=== PATIENT | male | born 1955 | race Caucasian/White ===

== ENCOUNTER 2018-07-26 08:30 | Emergency (ER) | payer MEDICARE, OTHER ==
--- NOTE | 2018-07-26 08:42 | ED Physician Documentation ---
PD HPI CHEST PAIN - Stated complaint Stated Complaint: CP - History obtained from History obtained from: Patient, Family - History of Present Illness Timing - onset: Enter time (129), Today Timing - onset during: Sleep Timing - duration: Hours Timing - details: Abrupt onset, Still present Pain level max: 10 Pain level now: 2 Quality: Pressure, Aching Location: Substernal Radiation: No: Jaw, Neck, Back, Abdominal, Left upper extremity, Right upper extremity Improved by: Antacids Worsened by: Inspiration Associated symptoms: No: Shortness of air, Diaphoresis, Nausea, Vomiting, Feeling faint / dizzy, General Weakness, Palpitations, Cough Similar symptoms before: Has not had sx before Recently seen: Not recently seen - Additional information Additional information: 63-year-old male who is recently moved to the [place] with his as developed acute substernal chest pain last night about 1:30 in the morning. This woke him from sleep and was severe. He did take some antacid which he thinks may have helped a bit as he was able to get back to sleep. When he woke this morning he still had this pain in his chest and his is insisted he come to the emergency department. The patient himself states he feels this is likely due to his hiatal hernia. He does not take acid reducing medicines on a regular basis. Review of Systems Constitutional: denies: Fever Eyes: denies: Decreased vision Ears: denies: Ear pain Nose: reports: Rhinorrhea / runny nose, Congestion, Sinus pressure / pain Throat: denies: Sore throat Cardiac: denies: Chest pain / pressure, Palpitations Respiratory: reports: Cough. denies: Dyspnea GI: denies: Abdominal Pain, Nausea, Vomiting : denies: Dysuria, Frequency Skin: denies: Rash Musculoskeletal: denies: Neck pain, Back pain, Extremity pain Neurologic: denies: Generalized weakness, Focal weakness, Numbness PD PAST MEDICAL HISTORY - Present Medications Home Medications: Ambulatory Orders Medication Instructions Recorded Confirmed Aspirin Chewable [[facility] 07/26/18 Aspirin] Losartan [Cozaar] 50 mg PO DAILY 07/26/18 07/26/18 Simvastatin 10 mg PO 07/26/18 07/26/18 Sucralfate [Carafate] 1 gm PO ACHS #30 tablet 07/26/18 - Allergies Allergies/Adverse Reactions: Allergies Allergy/AdvReac Type Severity Reaction Status Date / Time No Known Drug Allergies Allergy Verified 07/26/18 08:47 PD ED PE NORMAL - Vitals Vital signs reviewed: Yes (hypertensive) - General General: Alert and oriented X 3, No acute distress, Well developed/nourished - HEENT HEENT: Atraumatic, PERRL, EOMI - Neck Neck: Supple, no meningeal sign - Cardiac Cardiac: RRR, No murmur - Respiratory Respiratory: No respiratory distress, Clear bilaterally - Abdomen Abdomen: Soft, Non tender - Back Back: No CVA TTP, No spinal TTP - Derm Derm: Normal color, Warm and dry, No rash - Extremities Extremities: No deformity, No edema - Neuro Neuro: Alert and oriented X 3, biology professor 2-12 intact, No motor deficit, No sensory deficit, Normal speech Eye Opening: Spontaneous Motor: Obeys Commands Verbal: Oriented GCS Score: 15 - Psych Psych: Normal mood, Normal affect Results - Vitals Vitals: Vital Signs - 24 hr 07/26/18 08:44 Temperature 36.5 C Heart Rate 84 Respiratory 15 Rate Blood Pressure 139/96 H O2 Saturation 96 Oxygen O2 Source Room air - EKG (time done) 0839 Rate: Rate (enter#) (76) Rhythm: NSR Ischemia: Q waves Compare to prior EKG: Old EKG unavailable Computer interpretation: Agree with computer - Labs Labs: Laboratory Tests 07/26/18 07/26/18 07/26/18 08:59 08:59 08:59 WBC 12.8 H RBC 4.58 L Hgb 15.4 Hct 44.8 MCV 97.9 H MCH 33.6 H MCHC 34.3 RDW 13.5 Plt Count 261 MPV 8.4 Neut # (Auto) 9.2 H Lymph # (Auto) 2.0 [place] # (Auto) 1.1 H Eos # (Auto) 0.4 Baso # (Auto) 0.1 Absolute Nucleated RBC 0.00 Nucleated RBC % 0.0 Sodium 139 Potassium 4.4 Chloride 106 Carbon Dioxide 26 Anion Gap 7.0 BUN 15 Creatinine 1.0 Estimated GFR (MDRD) 75 L Glucose 111 H Calcium 9.5 Total Bilirubin 0.8 AST 28 ALT 23 Alkaline Phosphatase 68 Troponin I < 0.04 Total Protein 6.5 L Albumin 3.9 Globulin 2.6 Albumin/Globulin Ratio 1.5 Lipase 36 - Rads (name of study) 2 view chest Radiology: Prelim report reviewed (Impression: No radiographically apparent acute abnormality in the chest.), EMP read indepedently, See rad report PD MEDICAL DECISION MAKING - ED course Complexity details: reviewed results, re-evaluated patient, considered differential, d/w patient, d/w family ED course: 63-year-old male with acute onset of substernal chest pain consistent with reflux has improvement with antacids at the onset of event and has improvement with viscous lidocaine and Mylanta here in the emergency department. His diagnostic studies are otherwise within normal limits. - Sepsis Event Vital Signs: Vital Signs - 24 hr 07/26/18 08:44 Temperature 36.5 C Heart Rate 84 Respiratory 15 Rate Blood Pressure 139/96 H O2 Saturation 96 Oxygen O2 Source Room air Departure - Departure Disposition: 01 Home, Self Care Clinical Impression: Reflux esophagitis Condition: Stable Instructions: ED GERD Follow-Up: Celeste Gabriel MD [Primary Care Provider] - Prescriptions: Sucralfate [Carafate] 1 gm PO ACHS #30 tablet Comments: Avoid alcohol ibuprofen and Aleve and take something to reduce the acid in your stomach on a regular basis for at least 10 days. I suggest Pepcid AC or omeprazole.
[2018-07-26] MEDS ORDERED: LIDOCAINE VISCOUS 2% 15 ML UDC MM STA (08:58)
[2018-07-26] MEDS ORDERED: MAG HYDROX/AL HYDROX/SIMETH 30 ML UDC PO STA (08:59)
[2018-07-26 09:08] LABS: BASOPHILS # (AUTO) 0.1 10^3/uL (0.0-0.1); BASOPHILS % (AUTO) 0.9 %; EOSINOPHILS # (AUTO) 0.4 10^3/uL (0.0-0.7); EOSINOPHILS % (AUTO) 3.3 %; HGB - HEMOGLOBIN 15.4 g/dL (14.0-18.0); LYMPHOCYTES % (AUTO) 15.8 %; MEAN CORPUSCULAR HEMOGLOBIN 33.6 pg (27.0-31.0); MEAN CORPUSCULAR HGB CONC 34.3 g/dL (32.0-36.0); MEAN CORPUSCULAR VOLUME 97.9 fL (80.0-94.0); MEAN PLATELET VOLUME 8.4 fL (7.4-11.4); MONOCYTES # (AUTO) 1.1 10^3/uL (0.0-1.0); MONOCYTES % (AUTO) 8.5 %; NEUTROPHILS # (AUTO) 9.2 10^3/uL (1.5-6.6); NEUTROPHILS % (AUTO) 71.5 %; PLT - PLATELET COUNT 261 10^3/uL (130-450); RED BLOOD COUNT 4.58 10^6/uL (4.70-6.10); RED CELL DISTRIBUTION WIDTH 13.5 % (12.0-15.0); WHITE BLOOD COUNT 12.8 x10^3/uL (4.8-10.8)
[2018-07-26 09:27] LABS: ALBUMIN 3.9 g/dL (3.2-5.5); ALBUMIN/GLOBULIN RATIO 1.5 (1.0-2.2); BILIRUBIN,TOTAL 0.8 mg/dL (0.2-1.0); CALCIUM 9.5 mg/dL (8.5-10.3); TOTAL PROTEIN 6.5 g/dL (6.7-8.2)
--- NOTE | 2018-07-26 09:28 | XRAY Report ---
Reason: chest pain Procedure Date: 07/26/2018 Accession Number: [id number] / [id number] Procedure: XR - Chest 2 View X-Ray CPT Code: 63344 FULL RESULT: EXAM: CHEST RADIOGRAPHY EXAM DATE: 07/26/2018 09:15 AM. CLINICAL HISTORY: Chest pain. COMPARISON: None. TECHNIQUE: 2 views. FINDINGS: Lungs/Pleura: No focal consolidation evident. No pleural effusion. No pneumothorax. Normal volumes. Mediastinum: Heart and mediastinal contours are unremarkable. Other: None. IMPRESSION: No radiographically apparent acute abnormality in the chest. RADIA
[2018-07-26 10:19] VITALS: BP 141/94
== END 2018-07-26 10:18 | disposition home or self-care (01) ==
LOC: ED 08:30
DX: K21.0 Gastro-esophageal reflux disease with esophagitis (principal); K44.9 Diaphragmatic hernia without obstruction or gangrene; Z79.82 Long term (current) use of aspirin; R94.31 Abnormal electrocardiogram [ECG] [EKG]
CPT/HCPCS: 36415; 71046; 80053; 83690; 84484; 85025; 93005; 99283; A9270

== ENCOUNTER 2019-02-22 12:05 | Day surgery (SDC) | payer MEDICARE, OTHER ==
[2019-02-22] MEDS ORDERED: MIDAZOLAM 2 MG/2 ML VIAL IVP ONE ×2 (12:06→13:56)
[2019-02-22] MEDS ORDERED: fentaNYL 100 MCG/2 ML VIAL IVP ONE ×2 (12:06→13:56)
[2019-02-22] MEDS ORDERED: LACTATED RINGERS 1,000 ML IV ONE (12:46)
[2019-02-22] MEDS ORDERED: LIDO GARGLE 30 ML BOTTLE ONE (14:00)
[2019-02-22] MEDS ORDERED: BENZOCAINE/TETRACAINE/BUTAMBEN 20 GM TOP ONE (14:01)
[2019-02-22 14:40] VITALS: BP 115/76
== END 2019-02-22 12:06 | disposition home or self-care (01) ==
LOC: SDS 12:05
PROVIDERS: ATTEND Surgery
PROC: 0DB78ZX Excision of Stomach, Pylorus, Via Natural or Artificial Opening Endoscopic, Diagnostic (ICD-10-PCS; principal; 2019-02-22 14:00)
DX: K29.60 Other gastritis without bleeding (principal); K21.9 Gastro-esophageal reflux disease without esophagitis; K44.9 Diaphragmatic hernia without obstruction or gangrene; Z86.010 Personal history of colon polyps; I10 Essential (primary) hypertension; E78.5 Hyperlipidemia, unspecified; F40.240 Claustrophobia; N40.0 Benign prostatic hyperplasia without lower urinary tract symptoms; F17.210 Nicotine dependence, cigarettes, uncomplicated; Z79.82 Long term (current) use of aspirin
CPT/HCPCS: 43239; 87081; A9270; J7120

== ENCOUNTER 2019-03-15 07:56 | Outpatient (CLI) | payer MEDICARE, OTHER ==
--- NOTE | 2019-03-15 14:47 | MRI Report ---
Reason: R SHOULDER PAIN Procedure Date: 03/15/2019 Accession Number: [id number] / [id number] Procedure: MRI - Shoulder RT W/O CPT Code: FULL RESULT: EXAM: RIGHT SHOULDER MRI WITHOUT CONTRAST EXAM DATE: 03/15/2019 08:11 AM. CLINICAL HISTORY: Right shoulder pain for 4 years. COMPARISON: None. TECHNIQUE: Multiplanar, multisequence T1-weighted and fluid-sensitive sequences of the shoulder without contrast. Other: None. FINDINGS: Acromioclavicular Region: The acromion is type II. Mild osteoarthritis acromioclavicular joint. The coracoacromial and coracoclavicular ligaments are intact. Small fluid or synovial hypertrophy subacromial/subdeltoid bursa. Glenohumeral Region: No subluxation. Small joint fluid. Moderate chondromalacia. The glenohumeral ligaments and joint capsule are unremarkable. Bone Marrow: Mild spurring medial humerus head. Focal geographic marrow edema greater tuberosity humerus head at the supraspinatus tendon insertion. Labrum: Superior labrum tear with anterior and posterior extension. Musculature/Rotator Cuff: Negative for rotator cuff tear. Distal supraspinatus calcific tendinosis with adjacent bursitis. Thickening and intermediate signal infraspinatus supraspinatus interval consistent with tendinosis. Rotator cuff muscles are negative for atrophy or edema. Biceps Tendon: The long head of the biceps tendon and biceps favio are intact. Other: The subcutaneous tissues are unremarkable. IMPRESSION: 1. Distal supraspinatus calcific tendinosis with associated greater tuberosity marrow edema and subacromial/subdeltoid bursitis. 2. Tendinosis supraspinatus infraspinatus interval. 3. Superior labrum tear SLAP lesion with anterior and posterior extension (type IIc). RADIA
== END 2019-03-15 07:57 | disposition home or self-care (01) ==
LOC: DI 07:56
PROVIDERS: ATTEND Internal Medicine
DX: M75.81 Other shoulder lesions, right shoulder (principal); M75.51 Bursitis of right shoulder; M19.011 Primary osteoarthritis, right shoulder; S43.431A Superior glenoid labrum lesion of right shoulder, initial encounter

== ENCOUNTER 2019-05-11 14:57 | Emergency (ER) | payer MEDICARE, OTHER ==
--- NOTE | 2019-05-11 15:25 | ED Physician Documentation ---
PD HPI FOCAL NEURO - Stated complaint Stated Complaint: STROKE LIKE SX - Chief complaint Chief Complaint: Neuro - History obtained from History obtained from: Patient, Family - History of Present Illness Timing - onset: Today (He suddenly had difficulty with memory this afternoon. He denies any specific complaints. He denies headache. He is walking okay. No weakness, numbness, or tingling. This is never happened before.) Review of Systems Ten Systems: 10 systems reviewed and negative Constitutional: denies: Fever, Chills Throat: denies: Dental pain / toothache, Sore throat Cardiac: denies: Chest pain / pressure, Palpitations Respiratory: denies: Dyspnea, Cough PD PAST MEDICAL HISTORY - Past Medical History Cardiovascular: Hypertension, High cholesterol Respiratory: None Endocrine/Autoimmune: None GI: GERD, Hiatal hernia : None HEENT: None Psych: None Musculoskeletal: None Derm: None - Past Surgical History General: Hiatal hernia repair, EGD - Present Medications Home Medications: Ambulatory Orders Medication Instructions Recorded Confirmed Aspirin Chewable [[facility] 1 tab PO DAILY 07/26/18 02/21/19 Aspirin] Losartan [Cozaar] 50 mg PO DAILY 07/26/18 02/21/19 Simvastatin 10 mg PO DAILY 07/26/18 02/21/19 Sucralfate [Carafate] 1 gm PO ACHS #30 tablet 07/26/18 02/21/19 - Allergies Allergies/Adverse Reactions: Allergies Allergy/AdvReac Type Severity Reaction Status Date / Time No Known Drug Allergies Allergy Verified 05/11/19 15:07 - Social History Does the pt smoke?: Yes Smoking Status: Current every day smoker Does the pt drink ETOH?: Yes - Immunizations Immunizations are current?: Yes PD ED PE NORMAL - Vitals Vital signs reviewed: Yes - General General: Alert and oriented X 3, No acute distress - HEENT HEENT: PERRL, EOMI, Other (Droopy right eyelid which the says is chronic) - Neck Neck: Supple, no meningeal sign, No bony TTP - Cardiac Cardiac: RRR, No murmur - Respiratory Respiratory: No respiratory distress, Clear bilaterally - Abdomen Abdomen: Normal bowel sounds, Soft, Non tender - Derm Derm: Normal color, Warm and dry - Extremities Extremities: No edema, No calf tenderness / cord - Neuro Neuro: Alert and oriented X 3, Normal speech, Other (NIH stroke scale of 0. He had a little trouble coming up with the specific date but got there. He knew hi s age and that he was turning 64 in June. He remembers that tomorrow is his 16th anniversary. He remembers what he had for breakfast, 2 eggs, potatoes, wheat toast, and coffee.) - Psych Psych: Normal mood, Normal affect Results - Vitals Vitals: Vital Signs - 24 hr 05/11/19 05/11/19 15:04 15:30 Temperature 35.9 C L Heart Rate 103 H 93 Respiratory 19 22 Rate Blood Pressure 146/86 H 145/104 H O2 Saturation 97 98 Oxygen O2 Source Room air - EKG (time done) 1526 Rate: Rate (enter#) (92) Rhythm: NSR [place]: Normal Intervals: Normal [place] QRS: Normal Ischemia: Normal ST segments Computer interpretation: Agree with computer - Labs Labs: Laboratory Tests 05/11/19 05/11/19 15:40 15:40 WBC 9.7 RBC 4.63 L Hgb 15.6 Hct 45.9 MCV 99.1 H MCH 33.7 H MCHC 34.0 RDW 12.8 Plt Count 260 MPV 9.9 Neut # (Auto) 5.6 Lymph # (Auto) 2.9 [place] # (Auto) 0.7 Eos # (Auto) 0.4 Baso # (Auto) 0.0 Absolute Nucleated RBC 0.00 Nucleated RBC % 0.0 Sodium 139 Potassium 4.0 Chloride 104 Carbon Dioxide 23 Anion Gap 12.0 BUN 14 Creatinine 1.0 Estimated GFR (MDRD) 75 L Glucose 137 H Calcium 9.3 Total Bilirubin 0.4 AST 17 ALT 14 Alkaline Phosphatase 63 Total Protein 6.8 Albumin 4.0 Globulin 2.8 Albumin/Globulin Ratio 1.4 Lipase 43 Ethyl Alcohol < 5.0 - Rads (name of study) CT Head Radiology: EMP read contemporaneously (age realted chgs, NAD) PD MEDICAL DECISION MAKING - ED course ED course: 63-year-old gentleman presents with an apparent mild and already improving case of transient global amnesia without focal neurologic deficits on examination here he is pretty much normal. He continued to improve per the throughout his ED stay. Departure - Departure Disposition: 01 Home, Self Care Clinical Impression: Transient global amnesia Condition: Good Record reviewed to determine appropriate education?: Yes Health Concerns: memory difficulty Plan of Treatment: conservative care, discuss statis with PCP Care Goals: rest Assessment: as above Comments: The diagnosis today is transient global amnesia. This should be gone within a day or so. Do not drive today. Follow-up with your primary care physician, discuss ongoing statin use as there is an association between statins and this diagnosis. Return if worse.
[2019-05-11 15:45] VITALS: BP 145/104
[2019-05-11 15:52] LABS: BASOPHILS % (AUTO) 0.4 %; EOSINOPHILS # (AUTO) 0.4 10^3/uL (0.0-0.7); EOSINOPHILS % (AUTO) 3.6 %; HGB - HEMOGLOBIN 15.6 g/dL (14.0-18.0); LYMPHOCYTES # (AUTO) 2.9 10^3/uL (1.5-3.5); LYMPHOCYTES % (AUTO) 30.3 %; MEAN CORPUSCULAR HEMOGLOBIN 33.7 pg (27.0-31.0); MEAN CORPUSCULAR VOLUME 99.1 fL (80.0-94.0); MEAN PLATELET VOLUME 9.9 fL (7.4-11.4); MONOCYTES # (AUTO) 0.7 10^3/uL (0.0-1.0); MONOCYTES % (AUTO) 7.6 %; NEUTROPHILS # (AUTO) 5.6 10^3/uL (1.5-6.6); NEUTROPHILS % (AUTO) 57.7 %; PLT - PLATELET COUNT 260 10^3/uL (130-450); RED BLOOD COUNT 4.63 10^6/uL (4.70-6.10); RED CELL DISTRIBUTION WIDTH 12.8 % (12.0-15.0); WHITE BLOOD COUNT 9.7 x10^3/uL (4.8-10.8)
[2019-05-11 15:58] LABS: ALBUMIN/GLOBULIN RATIO 1.4 (1.0-2.2); ALKALINE PHOSPHATASE 63 IU/L (42-121); ALT ALANINE AMINOTRANSFERASE 14 IU/L (10-60); AST ASPARTATE AMINOTRANSFERASE 17 IU/L (10-42); BILIRUBIN,TOTAL 0.4 mg/dL (0.2-1.0); BUN - BLOOD UREA NITROGEN 14 mg/dL (6-20); CALCIUM 9.3 mg/dL (8.5-10.3); CARBON DIOXIDE - CO2 23 mmol/L (21-32); CHLORIDE 104 mmol/L (101-111); GFR - MDRD 75 (>89); GLUCOSE 137 mg/dL (70-100); LIPASE 43 U/L (22-51); SODIUM 139 mmol/L (135-145); TOTAL PROTEIN 6.8 g/dL (6.7-8.2)
--- NOTE | 2019-05-11 16:20 | CT Report ---
Reason: transient global amnesia Procedure Date: 05/11/2019 Accession Number: [id number] / [id number] Procedure: CT - HEAD WO CPT Code: FULL RESULT: EXAM: CT HEAD EXAM DATE: 05/11/2019 03:52 PM. CLINICAL HISTORY: Transient global amnesia. COMPARISON: None. TECHNIQUE: Multiaxial CT images were obtained from the foramen magnum to the vertex. Reformats: Sagittal and coronal. IV contrast: None. In accordance with CT protocol optimization, one or more of the following dose reduction techniques were utilized for this exam: automated exposure control, adjustment of mA and/or KV based on patient size, or use of iterative reconstructive technique. FINDINGS: Parenchyma: No intraparenchymal hemorrhage. No evidence of mass, midline shift, or CT findings of acute infarction. Pena-white differentiation is distinct. Diffuse chronic microangiopathic white matter changes are evident. Empty sella noted which can be a normal variant. Extraaxial Spaces: Normal for age. No subdural or epidural collections identified. Ventricles: The ventricles and cortical sulci are enlarged, consistent with age-related tissue loss. Sinuses and orbits: Imaged paranasal sinuses, orbits, and mastoids show no significant abnormality. Bones: No evidence of fracture or calvarial defect. Other: None. IMPRESSION: Generalized age-related cortical atrophic changes without evidence of acute intracranial abnormality. RADIA
== END 2019-05-11 16:37 | disposition home or self-care (01) ==
LOC: ED 14:57
DX: G45.4 Transient global amnesia (principal); I10 Essential (primary) hypertension; E78.00 Pure hypercholesterolemia, unspecified; F17.200 Nicotine dependence, unspecified, uncomplicated; Z79.82 Long term (current) use of aspirin
CPT/HCPCS: 36415; 70450; 80053; 80320; 83690; 85025; 93005; 99282; 99283

== ENCOUNTER 2019-11-18 11:27 | Outpatient (CLI) | payer MEDICARE, OTHER ==
[2019-11-18] MEDS ORDERED: IOVERSOL 320 50 ML VIAL ONE (11:36)
[2019-11-18] MEDS ORDERED: IOVERSOL 320 100 ML VIAL IVP ONE ×2 (11:36→13:07)
[2019-11-18 11:59] LABS: CREATININE 1.1 mg/dL (0.6-1.2)
[2019-11-18] MEDS ORDERED: IOVERSOL 320 50 ML VIAL PO ONE (13:07)
--- NOTE | 2019-11-18 13:24 | CT Report ---
Reason: LLQ PAIN Procedure Date: 11/18/2019 Accession Number: [id number] / [id number] Procedure: CT - Abdomen/Pelvis W CPT Code: Final Report FULL RESULT: EXAM: CT ABDOMEN AND PELVIS EXAM DATE: 11/18/2019 12:49 PM. CLINICAL HISTORY: LLQ PAIN. COMPARISONS: None. TECHNIQUE: Routine helical CT imaging was performed through the abdomen and pelvis. IV contrast: OPTI 320 100ML. Enteric contrast: Yes. Reconstructions: Coronal and sagittal. In accordance with CT protocol optimization, one or more of the following dose reduction techniques were utilized for this exam: automated exposure control, adjustment of mA and/or KV based on patient size, or use of iterative reconstructive technique. FINDINGS: Lung Bases: Unremarkable. Liver: Normal. No masses. Gallbladder/Bile Ducts: Unremarkable. Spleen: Normal. Pancreas: Normal. Adrenal Glands: Normal. Kidneys: No renal or ureteral stones. No mass or hydronephrosis. Peritoneal Cavity/Bowel: Stomach and duodenum appears unremarkable. There is oral contrast within the small bowel and colon to the mid transverse colon. There are mild to moderate number of diverticula within the left colon. No focal bowel wall thickening. No abnormal fluid or gas collection. The appendix is well visualized and normal. Pelvic Organs: Urinary bladder is unremarkable. Vasculature: There is mild to moderate arterial vascular calcification. Bones: No significant abnormality. Other: None. IMPRESSION: 1. No localizing acute inflammatory process to explain abdominal pain symptoms. RADIA The call report notification system was initiated by Dr. Andrade Fernandez at 01:23 PM on 11/18/2019.
== END 2019-11-18 11:28 | disposition home or self-care (01) ==
LOC: DI 11:27
PROVIDERS: ATTEND Internal Medicine
DX: R10.32 Left lower quadrant pain (principal)
CPT/HCPCS: 36415; 74177; 82565; Q9967

== ENCOUNTER 2020-01-20 06:23 | Day surgery (SDC) | payer MEDICARE, OTHER ==
[2020-01-20] MEDS ORDERED: fentaNYL 250 MCG/5 ML VIAL IVP ONE (06:24)
[2020-01-20] MEDS ORDERED: MIDAZOLAM 2 MG/2 ML VIAL IVP ONE (06:24)
[2020-01-20] MEDS ORDERED: LACTATED RINGERS 1,000 ML IV ONE (07:02)
[2020-01-20 08:37] VITALS: BP 116/73
== END 2020-01-20 06:24 | disposition home or self-care (01) ==
LOC: SDS 06:23
PROVIDERS: ATTEND Internal Medicine Gastroenterology
PROC: 0DBM8ZZ Excision of Descending Colon, Via Natural or Artificial Opening Endoscopic (ICD-10-PCS; principal; 2020-01-20 07:30)
DX: R19.4 Change in bowel habit (principal); D12.4 Benign neoplasm of descending colon; K57.30 Diverticulosis of large intestine without perforation or abscess without bleeding; I10 Essential (primary) hypertension; N40.0 Benign prostatic hyperplasia without lower urinary tract symptoms
CPT/HCPCS: 45380; J3010; J7120

== ENCOUNTER 2021-07-15 16:24 | Outpatient (CLI) | payer MEDICARE, OTHER ==
--- NOTE | 2021-07-15 16:49 | XRAY Report ---
PROCEDURE: Hand 3 View RT INDICATIONS: PAIN IN FINGERS AND HAND TECHNIQUE: 3 views of the hand(s) acquired. COMPARISON: None FINDINGS: Bones: No fractures or dislocations. No suspicious bony lesions. Mild osteoarthritic changes are n oted throughout right-hand and wrist joints. No gross bony erosive changes. Soft tissues: No suspicious soft tissue calcifications. 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 No fracture or dislocation. No bony erosive changes. Reviewed by: Bassam Haddad MD on 07/15/2021 4:47 PM PDT Approved by: Bassam Haddad MD on 07/15/2021 4:47 PM PDT Station ID: [id number]
== END 2021-07-15 16:25 | disposition home or self-care (01) ==
LOC: DI 16:24
PROVIDERS: ATTEND Internal Medicine
DX: M19.041 Primary osteoarthritis, right hand (principal); M19.031 Primary osteoarthritis, right wrist

== ENCOUNTER 2022-04-19 09:51 | Outpatient (CLI) | payer MEDICARE, OTHER ==
[2022-04-19 10:25] LABS: BASOPHILS # (AUTO) 0.1 10^3/uL (0.0-0.1); BASOPHILS % (AUTO) 0.6 %; EOSINOPHILS # (AUTO) 0.2 10^3/uL (0.0-0.7); HCT - HEMATOCRIT 47.6 % (42.0-52.0); HGB - HEMOGLOBIN 15.9 g/dL (14.0-18.0); LYMPHOCYTES # (AUTO) 2.2 10^3/uL (1.5-3.5); LYMPHOCYTES % (AUTO) 23.4 %; MEAN CORPUSCULAR HEMOGLOBIN 33.5 pg (27.0-31.0); MEAN CORPUSCULAR HGB CONC 33.4 g/dL (32.0-36.0); MEAN CORPUSCULAR VOLUME 100.2 fL (80.0-94.0); MEAN PLATELET VOLUME 9.3 fL (7.4-11.4); MONOCYTES # (AUTO) 0.9 10^3/uL (0.0-1.0); MONOCYTES % (AUTO) 9.7 %; NEUTROPHILS # (AUTO) 6.1 10^3/uL (1.5-6.6); PLT - PLATELET COUNT 301 10^3/uL (130-450); RED BLOOD COUNT 4.75 10^6/uL (4.70-6.10); RED CELL DISTRIBUTION WIDTH 13.1 % (12.0-15.0); WHITE BLOOD COUNT 9.5 x10^3/uL (4.8-10.8)
[2022-04-19 10:44] LABS: ALBUMIN 3.5 g/dL (3.2-5.5); ALBUMIN/GLOBULIN RATIO 1.2 (1.0-2.2); ALKALINE PHOSPHATASE 77 IU/L (42-121); ALT ALANINE AMINOTRANSFERASE 15 IU/L (10-60); AST ASPARTATE AMINOTRANSFERASE 21 IU/L (10-42); BILIRUBIN,TOTAL 0.7 mg/dL (0.2-1.0); BUN - BLOOD UREA NITROGEN 11 mg/dL (6-20); CARBON DIOXIDE - CO2 26 mmol/L (21-32); CHLORIDE 103 mmol/L (101-111); CHOL/HDL RATIO 3.3 (<5.0); CHOLESTEROL 202 mg/dL; CK- CREATINE KINASE 116 IU/L (22-269); GFR - MDRD 74 (>89); GLUCOSE 107 mg/dL (70-100); HDL CHOLESTEROL 61 mg/dL; LDL CHOLESTEROL,CALCULATED 127 mg/dL; LDL/HDL RATIO 2.1 (<3.6); POTASSIUM 4.6 mmol/L (3.5-5.0); SODIUM 140 mmol/L (135-145); TOTAL PROTEIN 6.4 g/dL (6.7-8.2); TRIGLYCERIDES 72 mg/dL; VLDL CHOLESTEROL 14 mg/dL
== END 2022-04-19 09:52 | disposition home or self-care (01) ==
LOC: LAB 09:51
PROVIDERS: ATTEND Internal Medicine
DX: Z00.00 Encounter for general adult medical examination without abnormal findings (principal); N40.0 Benign prostatic hyperplasia without lower urinary tract symptoms; K21.9 Gastro-esophageal reflux disease without esophagitis; Z86.010 Personal history of colon polyps; E78.5 Hyperlipidemia, unspecified; I10 Essential (primary) hypertension; Z79.899 Other long term (current) drug therapy
CPT/HCPCS: 36415; 80053; 80061; 82550; 83721; 84153; 84443; 85025

== ENCOUNTER 2023-04-07 07:34 | Emergency (ER) | payer MEDICARE, OTHER ==
--- NOTE | 2023-04-07 07:59 | ED Physician Documentation ---
PD HPI SYNCOPE - Stated complaint Stated Complaint: WEAK/PALE - Chief complaint Chief Complaint: Cardiac - History obtained from History obtained from: Patient, Family - History of Present Illness Witnessed: Witnessed (he felt lightheaded when up this morning. [place] somepain in both upper arms. No chest pain. noted him being pale and almost fainted. Took BP at home and it was low at 80s systolic briefly.) Timing - onset: Today Preceding symptoms: Diaphoresis. No: Headache, Chest pain, Palpitations, Dyspnea Associated symptoms: No: Chest pain, Nausea / vomiting Contributing factors: Just stood up. No: Recent med change, Decreased PO intake, Noxious stimulae Injury occurred: No: Fell, Head injury Similar symptoms before: Has not had sx before Recently seen: Not recently seen Review of Systems Constitutional: denies: Fever, Chills Nose: denies: Rhinorrhea / runny nose, Congestion Throat: denies: Sore throat Cardiac: denies: Chest pain / pressure, Palpitations, Pedal edema, Calf pain Respiratory: denies: Dyspnea, Cough GI: reports: Nausea. denies: Abdominal Pain, Vomiting, Diarrhea Neurologic: reports: Generalized weakness, Near syncope. denies: Focal weakness, Syncope, Headache PD PAST MEDICAL HISTORY - Past Medical History Cardiovascular: Hypertension Respiratory: None Endocrine/Autoimmune: None GI: GERD, Hiatal hernia : Benign prostate hypertrophy, Other HEENT: Chronic vision loss, Chronic hearing loss Psych: None Musculoskeletal: None Derm: Other - Past Surgical History General: Hiatal hernia repair, EGD - Present Medications Home Medications: Ambulatory Orders Medication Instructions Recorded Confirmed Losartan [Cozaar] 50 mg PO DAILY 07/26/18 01/20/20 Simvastatin 10 mg PO DAILY 07/26/18 01/20/20 Loratadine [Claritin] 10 mg PO DAILY 01/17/20 01/20/20 Omeprazole 10 mg PO DAILY 01/17/20 01/20/20 - Allergies Allergies/Adverse Reactions: Allergies Allergy/AdvReac Type Severity Reaction Status Date / Time No Known Drug Allergies Allergy Verified 04/07/23 07:55 - Social History Does the pt smoke?: Yes Smoking Status: Current every day smoker Does the pt drink ETOH?: Yes - Immunizations Immunizations are current?: Yes PD ED PE NORMAL - Vitals Vital signs reviewed: Yes - General General: Alert and oriented X 3, No acute distress, Well developed/nourished - HEENT HEENT: Atraumatic - Neck Neck: Supple, no meningeal sign, No adenopathy - Cardiac Cardiac: RRR, No murmur - Respiratory Respiratory: No respiratory distress, Clear bilaterally - Abdomen Abdomen: Soft, Non tender - Derm Derm: Normal color, Warm and dry - Extremities Extremities: Normal ROM s pain, No edema, No calf tenderness / cord - Neuro Neuro: Alert and oriented X 3, skip locator 2-12 intact, No motor deficit, No sensory deficit, Normal speech Eye Opening: Spontaneous Motor: Obeys Commands Verbal: Oriented GCS Score: 15 Results - Vitals Vitals: Vital Signs - 24 hr 04/07/23 04/07/23 04/07/23 07:50 08:10 10:05 Temperature 36.6 C Heart Rate 93 87 79 Respiratory 20 16 16 Rate Blood Pressure 100/65 126/86 H 122/79 O2 Saturation 96 97 100 Oxygen O2 Source Room air - EKG (time done) 07:59 EKG releavant findings:: EKG personally interpreted by author of this note. Relevant findings are: Rate: Rate (enter#) (90) Rhythm: NSR [place]: Normal Intervals: Normal NE Ischemia: Normal ST segments. No: ST elevation c/w ischemia, ST depression - Labs Labs: Laboratory Tests 04/07/23 04/07/23 04/07/23 08:19 08:19 08:19 WBC 8.3 RBC 4.37 L Hgb 14.6 Hct 43.4 MCV 99.3 H MCH 33.4 H MCHC 33.6 RDW 13.2 Plt Count 295 MPV 9.8 Neut # (Auto) 5.7 Lymph # (Auto) 1.6 [place] # (Auto) 0.7 Eos # (Auto) 0.2 Baso # (Auto) 0.1 Absolute Nucleated RBC 0.00 Nucleated RBC % 0.0 Sodium 137 Potassium 4.3 Chloride 103 Carbon Dioxide 22 Anion Gap 12.0 BUN 16 Creatinine 1.3 H Estimated GFR (MDRD) 55 L Glucose 91 Calcium 8.3 L Magnesium 1.9 Total Bilirubin 0.6 AST 21 ALT 15 Alkaline Phosphatase 73 Troponin I High Sens 6.9 B-Natriuretic Peptide Total Protein 5.6 L Albumin 3.0 L Globulin 2.6 Albumin/Globulin Ratio 1.2 Lipase 35 Ethyl Alcohol < 5.0 04/07/23 08:19 WBC RBC Hgb Hct MCV MCH MCHC RDW Plt Count MPV Neut # (Auto) Lymph # (Auto) [place] # (Auto) Eos # (Auto) Baso # (Auto) Absolute Nucleated RBC Nucleated RBC % Sodium Potassium Chloride Carbon Dioxide Anion Gap BUN Creatinine Estimated GFR (MDRD) Glucose Calcium Magnesium Total Bilirubin AST ALT Alkaline Phosphatase Troponin I High Sens B-Natriuretic Peptide 19 Total Protein Albumin Globulin Albumin/Globulin Ratio Lipase Ethyl Alcohol PD Medical Decision Making - ED course Complexity details: reviewed results, considered differential (no signs of more significant cause of symptoms, specifically no signs for OH/ACS, lung process, heart failure. ), d/w patient Departure - Departure Disposition: Home, Self Care Clinical Impression: Arm pain, Transient hypotension Condition: Stable Record reviewed to determine appropriate education?: Yes Follow-Up: Celeste Gabriel MD [Primary Care Provider] - Comments: Your EKG is normal here as is your chest x-ray and basic blood tests of blood count, electrolytes, and targeted blood tests to look for heart attack and heart failure. No signs of more significant cause for your symptoms this morning. I would see how you do through the day. Normal diet and hydration. Perhaps hold your blood pressure medicine for a day or 2 just to ensure your blood pressure remains good and not low. No signs of heart attack, heart failure, fluid in the lungs, collapsed lung anemia or electrolyte problems. Your kidney function is slightly off from normal at 1.3 creatinine with the most recent 1.0. This is not that significant of a change based on just today's reading. See how you feel in the next day or 2. See if any other symptoms develop such as stomach pains, diarrhea, fevers cough or any other problems. Return as needed. Tylenol if needed for aches or pains in the arms etc. At this point I would not really be able to explain the arm pain. It can refer from the chest organs (not just from the heart) so again see if any other symptoms develop today. Can try antacids if needed, etc. Discharge Date/Time: 04/07/23 10:12
[2023-04-07] MEDS ORDERED: SODIUM CHLORIDE 0.9% 500 ML IV STA (08:18)
[2023-04-07] MEDS ORDERED: ACETAMINOPHEN 325 MG TABLET PO STA (08:19)
[2023-04-07 08:29] LABS: BASOPHILS # (AUTO) 0.1 10^3/uL (0.0-0.1); BASOPHILS % (AUTO) 0.6 %; EOSINOPHILS # (AUTO) 0.2 10^3/uL (0.0-0.7); EOSINOPHILS % (AUTO) 2.4 %; HCT - HEMATOCRIT 43.4 % (42.0-52.0); HGB - HEMOGLOBIN 14.6 g/dL (14.0-18.0); LYMPHOCYTES # (AUTO) 1.6 10^3/uL (1.5-3.5); LYMPHOCYTES % (AUTO) 19.6 %; MEAN CORPUSCULAR HEMOGLOBIN 33.4 pg (27.0-31.0); MEAN CORPUSCULAR HGB CONC 33.6 g/dL (32.0-36.0); MEAN CORPUSCULAR VOLUME 99.3 fL (80.0-94.0); MEAN PLATELET VOLUME 9.8 fL (7.4-11.4); MONOCYTES # (AUTO) 0.7 10^3/uL (0.0-1.0); MONOCYTES % (AUTO) 8.9 %; NEUTROPHILS # (AUTO) 5.7 10^3/uL (1.5-6.6); NEUTROPHILS % (AUTO) 68.3 %; PLT - PLATELET COUNT 295 10^3/uL (130-450); RED BLOOD COUNT 4.37 10^6/uL (4.70-6.10); RED CELL DISTRIBUTION WIDTH 13.2 % (12.0-15.0); WHITE BLOOD COUNT 8.3 x10^3/uL (4.8-10.8)
--- NOTE | 2023-04-07 08:29 | XRAY Report ---
PROCEDURE: Chest 1 View X-Ray INDICATIONS: Chest pain TECHNIQUE: One view of the chest was acquired. COMPARISON: 07/26/2018 FINDINGS: Surgical changes and devices: None. Lungs and pleura: No pleural effusions or pneumothorax. Lungs are clear. Mediastinum: Mediastinal contours appear normal. Heart size is normal. Bones and chest wall: No suspicious bony lesions. Overlying soft tissues appear unremarkable. IMPRESSION: No acute cardiopulmonary process. Reviewed by: Santos Paz MD on 04/07/2023 8:28 AM PDT Approved by: Santos Paz MD on 04/07/2023 8:28 AM PDT Station ID: [id number]
--- OUTSIDE RECORDS SUMMARY | 2023-04-07 09:35 | EXTERNAL MEDICAL SUMMARY RPT | Continuity of Care Document ---
Author Name Unknown Address [address] [place] [address] Phone Organization [facility] [place] Address [address] [place] [phone] Phone Problems date description facility 2023-04-01 11:04 Unequal limb length (acquired), unspecified [facility] 2023-04-01 11:36 Unequal limb length (acquired), unspecified [facility] 2023-04-06 12:01 Unequal limb length (acquired), [facility] Results/Labs test date author facility value unit interpretation Result panel 1 (unknown) (no date) (unknown) (unknown) (no value) (units unknown) (unknown) (unknown) (no date) (unknown) (unknown) 04/01/23 (units unknown) (unknown) (unknown) (no date) (unknown) (unknown) [address] [place] [address] (un its unknown) (unknown) (unknown) (no date) (unknown) (unknown) Accession Numb er: [id number] (units unknown) (unknown) (unknown) (no date) (unknown) (unknown) Accession Numb er: [id number] (units unknown) (unknown) (unknown) (no date) (unknown) (unknown) Age/Sex: 67 / M Date of Service: (units unknown) (unknown) (unknown) (no date) (unknown) (unknown) [place] [address] (units unknown) (unknown) (unknown) (no date) (unknown) (unknown) Approved by: Jennifer Uribe M.D. on 04/01/2023 at 19:17 (units unknown) (unknown) (unknown) (no date) (unknown) (unknown) Approved by: Jennifer Uribe M.D. on 04/01/2023 at 19:18 (units unknown) (unknown) (unknown) (no date) (unknown) (unknown) COMPARISON: None. (u nits unknown) (unknown) (unknown) (no date) (unknown) (unknown) : 3 Acct:[id number] (units unknown) (unknown) (unknown) (no date) (unknown) (unknown) Dictated by: Jennifer Uribe M.D. on 04/01/2023 at 19:14 (units unknown) (unknown) (unknown) (no date) (unknown) (unknown) Dictated by: Jennifer Uribe M.D. on 04/01/2023 at 19:17 (units unknown) (unknown) (unknown) (no date) (unknown) (unknown) FINDINGS: (units unknown) (unknown) (unknown) (no date) (unknown) (unknown) IMPRESSION: Le g length discrepancy of 3.5 cm. (units unknown) (unknown) (unknown) (no date) (unknown) (unknown) IMPRESSION: Leg-length discrepancy of 3.5 cm. (units unknown) (unknown) (unknown) (no date) (unknown) (unknown) INDICATIONS: L [facility] (units unknown) (unknown) (unknown) (no date) (unknown) (unknown) [facility] (uni ts unknown) (unknown) (unknown) (no date) (unknown) (unknown) Left: Total le g length is 92 cm. (units unknown) (unknown) (unknown) (no date) (unknown) (unknown) Loc: RAD (units unknown) (unknown) (unknown) (no date) (unknown) (unknown) MR#: [id number] (uni ts unknown) (unknown) (unknown) (no date) (unknown) (unknown) Ordering Provider: Ashley Zabala DPM (units unknown) (unknown) (unknown) (no date) (unknown) (unknown) PROCEDURE: XR BONE LENGTH SCANOGRAM (units unknown) (unknown) (unknown) (no date) (unknown) (unknown) Patient: Jeremy Denney (units unknown) (unknown) (unknown) (no date) (unknown) (unknown) Procedure: XR bone length scanogram (units unknown) (unknown) (unknown) (no date) (unknown) (unknown) Right: Total l eg length is 95.5 cm. (units unknown) (unknown) (unknown) (no date) (unknown) (unknown) Signed (units unknown) (unknown) (unknown) (no date) (unknown) (unknown) TECHNIQUE: A single frontal standing view of both lower extremities acquired, (units unknown) (unknown) (unknown) (no date) (unknown) (unknown) XRay Report (units unknown) (unknown) (unknown) (no date) (unknown) (unknown) measuring rule r situated between the legs. (units unknown) (unknown) (unknown) (no date) (unknown) (unknown) with (units unknown) (unknown)
[2023-04-07 09:51] LABS: ALBUMIN/GLOBULIN RATIO 1.2 (1.0-2.2); ALKALINE PHOSPHATASE 73 IU/L (42-121); ALT ALANINE AMINOTRANSFERASE 15 IU/L (10-60); AST ASPARTATE AMINOTRANSFERASE 21 IU/L (10-42); BILIRUBIN,TOTAL 0.6 mg/dL (0.2-1.0); BUN - BLOOD UREA NITROGEN 16 mg/dL (6-20); CALCIUM 8.3 mg/dL (8.5-10.3); CARBON DIOXIDE - CO2 22 mmol/L (21-32); CHLORIDE 103 mmol/L (101-111); CREATININE 1.3 mg/dL (0.6-1.2); ETOH - ETHANOL < 5.0 mg/dL; GFR - MDRD 55 (>89); GLUCOSE 91 mg/dL (70-100); LIPASE 35 U/L (22-51); MAGNESIUM 1.9 mg/dL (1.7-2.8); POTASSIUM 4.3 mmol/L (3.5-5.0); SODIUM 137 mmol/L (135-145); TOTAL PROTEIN 5.6 g/dL (6.7-8.2)
[2023-04-07 10:07] VITALS: BP 122/79
== END 2023-04-07 10:12 | disposition home or self-care (01) ==
LOC: ED 07:34
DX: M79.602 Pain in left arm (principal); M79.601 Pain in right arm; I95.89 Other hypotension; I10 Essential (primary) hypertension; F17.200 Nicotine dependence, unspecified, uncomplicated; Z79.899 Other long term (current) drug therapy
CPT/HCPCS: 36415; 71045; 80053; 83690; 83735; 83880; 84484; 85025; 93005; 99283; 99284; A9270; G0480; 80320

== ENCOUNTER 2023-08-16 07:55 | Outpatient (CLI) | payer MEDICARE, OTHER | END 2023-08-16 07:56 | disposition home or self-care (01) | LOC: DI 07:55 | PROVIDERS: ATTEND Internal Medicine | DX: R60.9 Edema, unspecified (principal) | CPT/HCPCS: 93306 ==

== ENCOUNTER 2023-12-06 12:24 | Outpatient (CLI) | payer MEDICARE, OTHER ==
--- NOTE | 2023-12-06 13:15 | Ultrasound Report ---
PROCEDURE: Duplex Ext Veins Left INDICATIONS: LEFT LEG SWELLING TECHNIQUE: Real-time imaging, as well as color and pulse Doppler interrogation, were performed of the lower extr emity deep veins from the inguinal ligament to the popliteal fossa. Attempted visualization of the ca lf veins was performed. COMPARISON: None. FINDINGS: The deep veins are normally compressible, and free of intraluminal thrombus. Color and pu lse Doppler demonstrate normal phasic intraluminal flow. There is normal augmentation response to di stal compression maneuver. Clot within the left anterior tibial veins from the proximal to mid calf. . Complex fluid collection within the left posterior fossa, may represent a Huynh's cyst. IMPRESSION: No deep venous thrombosis of the visualized lower extremity. Clot within left anterior t ibial vein from the proximal to mid calf. Reviewed by: David Recio MD on 12/06/2023 1:13 PM PST Approved by: David Recio MD on 12/06/2023 1:13 PM PST Station ID: [id number]
== END 2023-12-06 12:25 | disposition home or self-care (01) ==
LOC: DI 12:24
PROVIDERS: ATTEND Internal Medicine
DX: I82.442 Acute embolism and thrombosis of left tibial vein (principal)

== ENCOUNTER 2024-03-01 10:46 | Emergency (ER) | payer MEDICARE, OTHER ==
--- NOTE | 2024-03-01 11:31 | XRAY Report ---
PROCEDURE: Chest 1V INDICATIONS: Chest pain TECHNIQUE: One view of the chest was acquired. COMPARISON: Chest radiograph on April 07, 2023 FINDINGS: Bilateral costophrenic angles are excluded from the [id number]. Surgical changes and devices: None. Lungs and pleura: No pleural effusions or definite pneumothorax. Lungs are clear. Mediastinum: Mediastinal contours appear normal. Heart size is normal. Bones and chest wall: No suspicious bony lesions. Overlying soft tissues appear unremarkable. IMPRESSION: No acute cardiopulmonary process in the [id number]. Of note, the bilateral costophrenic angles are excluded from the [id number] which limits evaluation for a basilar pneumothorax. Reviewed by: Chandni Rush MD on 03/01/2024 11:30 AM PDT Approved by: Chandni Rush MD on 03/01/2024 11:30 AM PDT Station ID: [id number]
[2024-03-01 11:45] LABS: BASOPHILS # (AUTO) 0.1 10^3/uL (0.0-0.1); BASOPHILS % (AUTO) 0.7 %; EOSINOPHILS # (AUTO) 0.3 10^3/uL (0.0-0.7); EOSINOPHILS % (AUTO) 3.5 %; HCT - HEMATOCRIT 39.4 % (42.0-52.0); HGB - HEMOGLOBIN 12.4 g/dL (14.0-18.0); LYMPHOCYTES # (AUTO) 1.4 10^3/uL (1.5-3.5); LYMPHOCYTES % (AUTO) 19.5 %; MEAN CORPUSCULAR HEMOGLOBIN 31.6 pg (27.0-31.0); MEAN CORPUSCULAR HGB CONC 31.5 g/dL (32.0-36.0); MEAN CORPUSCULAR VOLUME 100.5 fL (80.0-94.0); MEAN PLATELET VOLUME 9.7 fL (7.4-11.4); MONOCYTES # (AUTO) 0.7 10^3/uL (0.0-1.0); MONOCYTES % (AUTO) 9.2 %; NEUTROPHILS # (AUTO) 4.8 10^3/uL (1.5-6.6); PLT - PLATELET COUNT 311 10^3/uL (130-450); RED BLOOD COUNT 3.92 10^6/uL (4.70-6.10); RED CELL DISTRIBUTION WIDTH 13.2 % (12.0-15.0); WHITE BLOOD COUNT 7.1 x10^3/uL (4.8-10.8)
[2024-03-01 12:02] LABS: ALBUMIN 3.3 g/dL (3.2-5.5); ALBUMIN/GLOBULIN RATIO 1.6 (1.0-2.2); BILIRUBIN,TOTAL 0.3 mg/dL (0.2-1.0); CREATININE 2.4 mg/dL (0.6-1.3); TOTAL PROTEIN 5.4 g/dL (6.4-8.9)
--- NOTE | 2024-03-01 12:03 | ED Physician Documentation ---
PD HPI CHEST PAIN - Stated complaint Stated Complaint: CP/LT ARM PX - Chief complaint Chief Complaint: Cardiac - History obtained from History obtained from: Patient, Family - History of Present Illness Pain level max: 5 Pain level now: 0 Quality: Indigestion Location: Substernal Improved by: Antacids Worsened by: Eating, Other (Lying flat) Associated symptoms: Nausea. No: Shortness of air, Diaphoresis, Vomiting, Feeling faint / dizzy, General Weakness, Palpitations, Cough - Additional information Additional information: 68-year-old male presents to the emergency department complaint of intermittent chest pain over the past 6 months or so. Has a history of a hiatal hernia. Smokes approximately 1 pack/day. Drinks 5-6 beers per night. The pain is typically worse at night, described as burning. Radiates to the bilateral shoulders. Feels like a warm feeling. He states that he is scheduled for cardiac stress test next month before they will do his endoscopy. Worse with eating and drinking, worse with lying down. No change with exertion or inspiration. No cough. No congestion. No recent surgeries or immobilization. Denies any cardiac history in the past. No nausea or vomiting. He states he thought he should just come and get checked today. Review of Systems Constitutional: denies: Fever, Chills Throat: denies: Sore throat Cardiac: denies: Palpitations Respiratory: denies: Dyspnea, Cough GI: denies: Vomiting, Diarrhea Skin: denies: Rash Musculoskeletal: denies: Neck pain, Back pain Neurologic: denies: Headache PD PAST MEDICAL HISTORY - Past Medical History Cardiovascular: Hypertension Respiratory: None Endocrine/Autoimmune: None GI: GERD, Hiatal hernia : Benign prostate hypertrophy, Other HEENT: Chronic vision loss, Chronic hearing loss Psych: None Musculoskeletal: None Derm: Other - Past Surgical History General: Hiatal hernia repair, EGD - Present Medications Home Medications: Ambulatory Orders Medication Instructions Recorded Confirmed Losartan [Cozaar] 50 mg PO DAILY 07/26/18 01/20/20 Simvastatin 10 mg PO DAILY 07/26/18 01/20/20 Loratadine [Claritin] 10 mg PO DAILY 01/17/20 01/20/20 Omeprazole 10 mg PO DAILY 01/17/20 01/20/20 Famotidine [Pepcid] 20 mg PO BID #60 tablet 03/01/24 Sucralfate [Carafate] 1 gm PO ACHS #60 tablet 03/01/24 - Allergies Allergies/Adverse Reactions: Allergies Allergy/AdvReac Type Severity Reaction Status Date / Time No Known Drug Allergies Allergy Verified 03/01/24 11:10 - Social History Does the pt smoke?: Yes Smoking Status: Current every day smoker Does the pt drink ETOH?: Yes - Immunizations Immunizations are current?: Yes PD ED PE NORMAL - Vitals Vital signs reviewed: Yes - General General: Alert and oriented X 3, No acute distress, Well developed/nourished - HEENT HEENT: PERRL, Moist mucous membranes - Neck Neck: Supple, no meningeal sign - Cardiac Cardiac: RRR, Strong equal pulses - Respiratory Respiratory: No respiratory distress, Clear bilaterally - Abdomen Abdomen: Soft, Non tender, Non distended - Back Back: No CVA TTP, No spinal TTP - Derm Derm: Warm and dry - Extremities Extremities: No edema, No calf tenderness / cord - Neuro Neuro: Alert and oriented X 3 - Psych Psych: Normal mood, Normal affect Results - Vitals Vitals: Vital Signs - 24 hr 03/01/24 03/01/24 11:07 12:51 Temperature 36.5 C 36.5 C Heart Rate 86 82 Respiratory 16 16 Rate Blood Pressure 137/78 H 130/80 O2 Saturation 98 100 Oxygen O2 Source Room air - EKG (time done) 1103 EKG releavant findings:: EKG personally interpreted by author of this note. Relevant findings are: Rate: Rate (enter#) Rhythm: NSR Intervals: RBBB - Labs Labs: Laboratory Tests 03/01/24 03/01/24 03/01/24 11:37 11:37 11:37 WBC 7.1 RBC 3.92 L Hgb 12.4 L Hct 39.4 L MCV 100.5 H MCH 31.6 H MCHC 31.5 L RDW 13.2 Plt Count 311 MPV 9.7 Neut # (Auto) 4.8 Lymph # (Auto) 1.4 L [place] # (Auto) 0.7 Eos # (Auto) 0.3 Baso # (Auto) 0.1 Absolute Nucleated RBC 0.00 Nucleated RBC % 0.0 Sodium 138 Potassium 5.0 H Chloride 106 Carbon Dioxide 27 Anion Gap 5.0 L BUN 26 H Creatinine 2.4 H Estimated GFR (MDRD) 27 L Glucose 103 Calcium 10.0 Phosphorus 3.4 Magnesium 1.9 Total Bilirubin 0.3 AST 15 ALT 11 Alkaline Phosphatase 61 Troponin I High Sens 8.6 Total Protein 5.4 L Albumin 3.3 Globulin 2.1 Albumin/Globulin Ratio 1.6 Lipase 30 - Rads (name of study) cxr Relevant Findings:: Final report received, See rad report PD Medical Decision Making - ED course Complexity details: reviewed results, re-evaluated patient, considered diff erential (No ST elevation CT, no aortic dissection, no PE, no tension pneumothorax, no aortic aneurysm), d/w patient ED course: Patient with atypical chest pain. Nonexertional. Does not sound consistent with ACS, sounds more consistent with gastritis versus GERD. Symptoms resolved with GI cocktail. No acute findings on EKG, chest x-ray, laboratory testing. Negative troponin. He has a cardiac stress test scheduled next month. We will adjust his medications for his hiatal hernia and gastritis. Encouraged him to quit smoking and quit drinking. Patient states that the GI cocktail made him feel quite a bit better. Recommend outpatient endoscopy. Patient counseled regarding signs and symptoms for which I believe and urgent re-evaluation would be necessary. Patient with good understanding of and agreement to plan and is comfortable going home at this time This document was made in part using voice recognition software. While efforts are made to proofread this document, sound alike and grammatical errors may occur. Departure - Departure Disposition: 01 Home, Self Care Clinical Impression: Acute renal insufficiency Reflux esophagitis Qualifiers: Esophagitis bleeding: with hemorrhage Qualified Code(s): K21.01 - Gastro- esophageal reflux disease with esophagitis, with bleeding Chest pain Qualifiers: Chest pain type: unspecified Qualified Code(s): R07.9 - Chest pain, unspecified Condition: Good Instructions: ED Chest Pain Atypical Unkn Cause, ED GERD Follow-Up: Celeste Gabriel MD [Primary Care Provider] - Within 1 week Prescriptions: Sucralfate [Carafate] 1 gm PO ACHS #60 tablet Famotidine [Pepcid] 20 mg PO BID #60 tablet Comments: Please follow-up with your doctor for further care. Your heart testing does not show any acute abnormalities today. Your kidney function, creatinine, is elevated compared to your usual so you are given IV fluids. Make sure you are drinking plenty of water. This needs to be rechecked next week with your doctor. Your prescriptions were sent to [facility] in [place], we will try changing your medications to see if this helps your symptoms of reflux. Please add these new medications to your current medication regimen. Forms: PCP List Discharge Date/Time: 03/01/24 12:51
[2024-03-01 12:05] LABS: TROPONIN I HIGH SENSITIVITY 8.6 ng/L (2.3-19.7)
[2024-03-01] MEDS: FAMOTIDINE 20 MG TABLET PO STA (12:06)
[2024-03-01] MEDS: MAG HYDROX/AL HYDROX/SIMETH 30 ML UDC PO STA (12:06)
[2024-03-01] MEDS: SUCRALFATE 1 GM/10 ML UDC PO STA (12:06)
[2024-03-01] MEDS: LIDOCAINE VISCOUS 2% 15 ML UDC MM STA (12:06)
[2024-03-01] MEDS: SODIUM CHLORIDE 0.9% 1,000 ML IV STA (12:10)
[2024-03-01 12:32] LABS: MAGNESIUM 1.9 mg/dL (1.7-2.3); PHOSPHORUS 3.4 mg/dL (2.5-5.0)
[2024-03-01 12:54] VITALS: BP 130/80; O2SAT 100
== END 2024-03-01 12:51 | disposition home or self-care (01) ==
LOC: ED 10:46
DX: K21.00 Gastro-esophageal reflux disease with esophagitis, without bleeding (principal); K44.9 Diaphragmatic hernia without obstruction or gangrene; R07.89 Other chest pain; K29.70 Gastritis, unspecified, without bleeding; N28.9 Disorder of kidney and ureter, unspecified; F17.200 Nicotine dependence, unspecified, uncomplicated
CPT/HCPCS: 36415; 71045; 80053; 83690; 83735; 84100; 84484; 85025; 93005; 99284; A9270

== ENCOUNTER 2024-03-04 12:16 | Outpatient (CLI) | payer MEDICARE, OTHER ==
[2024-03-04 13:14] LABS: CALCIUM 9.6 mg/dL (8.5-10.3); CREATININE 2.6 mg/dL (0.6-1.3); POTASSIUM 4.9 mmol/L (3.5-4.5)
--- NOTE | 2024-03-04 15:28 | XRAY Report ---
PROCEDURE: Knee 3V LT INDICATIONS: LEFT KNEE PAIN TECHNIQUE: 3 views of the knee(s) were acquired. COMPARISON: None. FINDINGS: Bones: No fractures or dislocations. No suspicious bony lesions. Soft tissues: No knee joint effusion. No suspicious soft tissue calcifications or masses. IMPRESSION: No acute bony abnormality. If there remains a high clinical concern for fracture, consider cross-sect ional imaging now. If pain persists, consider repeat x-ray in 10-14 days or cross-sectional imaging. Trace degenerative change. Reviewed by: Naty Turner MD on 03/04/2024 3:26 PM PDT Approved by: Naty Turner MD on 03/04/2024 3:26 PM PDT Station ID: [id number]
== END 2024-03-04 12:17 | disposition home or self-care (01) ==
LOC: LAB 12:16 → DI 12:17
PROVIDERS: ATTEND Internal Medicine
DX: M17.12 Unilateral primary osteoarthritis, left knee (principal); N40.0 Benign prostatic hyperplasia without lower urinary tract symptoms; N28.9 Disorder of kidney and ureter, unspecified
CPT/HCPCS: 36415; 80048

== ENCOUNTER 2024-03-13 08:54 | Outpatient (CLI) | payer MEDICARE, OTHER ==
[2024-03-13 09:17] LABS: CALCIUM 9.2 mg/dL (8.5-10.3); CREATININE 2.6 mg/dL (0.6-1.3); POTASSIUM 4.6 mmol/L (3.5-4.5)
== END 2024-03-13 08:55 | disposition home or self-care (01) ==
LOC: LAB 08:54
PROVIDERS: ATTEND Internal Medicine
DX: N19 Unspecified kidney failure (principal)
CPT/HCPCS: 36415; 80048

== ENCOUNTER 2024-04-02 08:56 | Outpatient (CLI) | payer MEDICARE, OTHER ==
--- NOTE | 2024-04-02 09:09 | CARDIAC PROCEDURE NOTE ---
Stress Test Report Service Date: 04/02/24 Service Time: 09:00 Ordering Provider: Celeste Gabriel MD Indication for Test: Assess chest discomfort. Significant Medical History: Jeremy is referred for an exercise treadmill test today, to evaluate upper chest and bilateral shoulder aching/burning that occurs quite frequently, often at rest, but also with exertion at times. He has been a heavy smoker and has a very sedentary lifestyle, that has been amplified by progressive leg burning with walking over the past few years. His chest discomfort was initially attributed to possible GI reflux disease (GERD) and he was referred for an endoscopy, but upon hearing his history the endoscopist recommended a coronary evaluation first. He was treated with simvastatin for many years with, it appears, most recent LDL cholesterol level 127 in April 2022. A few months ago when he went for a simvastatin refill he was provided atorvastatin instead, for unclear reasons; he questions whether his leg and shoulder achiness is worse after making the change to atorvastatin. He has not had follow-up lipids measured on this new treatment. When questioned about his willingness, and attempts, to stop smoking it appears that he has not had any pharmacologically supported attempts (such as Wellbutrin or Chantix) to discontinue. He admits that he could cut down significantly and states that he should be able to stop altogether, if he "made up my mind" to do so. Cardiac Risk Factors: Positive for longstanding and continuing cigarette smoking (>50 pack-year history), hyperlipidemia (treated with simvastatin for probably 20 yrs or more prior to recent transition to atorvastatin) and hypertension (treated for 5-10 years); negative for diabetes and known significant family CAD history. Type of Stress Test: Exercise Treadmill Test (ETT) Procedure: -Exercise Treadmill Test- After signing informed consent, the patient performed treadmill exercise using a modified Eitan protocol. The patient exercised for 4 minutes 23 seconds and achieved a peak heart rate of 141 (94 percent predicted maximum heart rate for age), and an estimated workload of 3.1 METS. The test was terminated due to aching pain in his thighs bilaterally that precluded his continuing exercise. Resting heart rate: 94 Peak heart rate: 141 Normal response to exercise. Resting BP: 130/84 Peak BP: 150/86 during exercise, 192/85 at 2:00 of Recovery Abnormal BP response to exercise. Room air oxygen saturation during exercise ranged between 93-95%. Rhythm during exercise: Sinus rhythm throughout with occasional, isolated monoform PVCs (13 total recorded). Symptoms: In addition to limiting thigh discomfort, he reported worsening of his shoulder aching (left>right) that at test onset was rated as 1-2/10 and in late exercise was reported as increased to 3-4/10. After test completion and one minute of slow walking "cool down" a single SL NTG tablet was administered, with the patient in a seated position. He described feeling burning under his tongue, with BP noted to increase and an equivocal decrease in his shoulder aching. EKG at rest showed normal sinus rhythm with right bundle branch block and probable left atrial abnormality, with interpretable ST/T segments. EKG at peak stress showed ST depression in leads V3-V4, likely meeting diagnostic EKG criteria for ischemia. In Recovery BP increased at 2 minutes before decreasing; HR decreased slowly, with final readings HR 104, BP 156/84 at 5:59. No imaging was ordered with this stress test. I, David Curran MD, was present throughout this treadmill stress study and supervised it in its entirety. Summary: 1) Exercise tolerance was markedly decreased for age and sex as evidenced by markedly decreased exercise time and BUZZ listed at 31%. 2) Abnormal resting EKG. 3) Adequate level of exercise was probably achieved on this treadmill stress test. 4) Abnormal BP response to exercise. 5) Probable ischemic changes by EKG criteria were seen at peak stress. 6) No imaging was ordered with this test. Conclusions and Recommendations: 1) In summary, these are overall abnormal results for this modified Eitan protocol ETT, given markedly limited exercise time (likely due most to claudication), worsening of patient's baseline left shoulder aching and ST depression, that appears to meet criteria for ischemia. 2) I tried to impress upon the patient the critical importance of accepting a pharmacologically supported attempt at total tobacco smoking cessation. 3) His response to a single SL NTG was equivocal, but he tolerated the agent without any adverse effects and it may be reasonable that it be prescribed, in case of a more severe episode of left shoulder aching. 4) It had been proposed that he take a short break from atorvastatin to see to what extent this agent is contributing to his achiness and I do not think this is unreasonable. Given today's test results it may be preferable to stop atorvastatin and try rosuvastatin (e.g. 5 mg daily or even qod to start), to see if this confers any benefit. 5) I am also recommending that he be further evaluated, with a Lexiscan stress nuclear imaging study to better characterize the severity of his ischemia, followed by formal review by a [employer], with the above interventions having been initiated. 6) These recommendations were discussed with referring provider, Celeste Gabriel MD, on the day of the study.
== END 2024-04-02 08:57 | disposition home or self-care (01) ==
LOC: DI 08:56
PROVIDERS: ATTEND Internal Medicine
DX: R94.39 Abnormal result of other cardiovascular function study (principal); M25.512 Pain in left shoulder; R07.9 Chest pain, unspecified; F17.210 Nicotine dependence, cigarettes, uncomplicated; E78.5 Hyperlipidemia, unspecified; I10 Essential (primary) hypertension
CPT/HCPCS: 93017

== ENCOUNTER 2024-04-11 06:59 | Outpatient (CLI) | payer MEDICARE, OTHER ==
[2024-04-11 07:44] LABS: BASOPHILS % (AUTO) 0.5 %; EOSINOPHILS # (AUTO) 0.3 10^3/uL (0.0-0.7); HCT - HEMATOCRIT 38.3 % (42.0-52.0); HGB - HEMOGLOBIN 12.4 g/dL (14.0-18.0); LYMPHOCYTES # (AUTO) 1.6 10^3/uL (1.5-3.5); MEAN CORPUSCULAR HEMOGLOBIN 31.9 pg (27.0-31.0); MEAN CORPUSCULAR HGB CONC 32.4 g/dL (32.0-36.0); MEAN CORPUSCULAR VOLUME 98.5 fL (80.0-94.0); MEAN PLATELET VOLUME 9.3 fL (7.4-11.4); MONOCYTES # (AUTO) 0.8 10^3/uL (0.0-1.0); MONOCYTES % (AUTO) 9.5 %; NEUTROPHILS # (AUTO) 5.5 10^3/uL (1.5-6.6); NEUTROPHILS % (AUTO) 66.8 %; PLT - PLATELET COUNT 319 10^3/uL (130-450); RED BLOOD COUNT 3.89 10^6/uL (4.70-6.10); RED CELL DISTRIBUTION WIDTH 13.3 % (12.0-15.0); WHITE BLOOD COUNT 8.2 x10^3/uL (4.8-10.8)
[2024-04-11 07:57] LABS: CALCIUM 9.4 mg/dL (8.5-10.3); CREATININE 3.2 mg/dL (0.6-1.3); POTASSIUM 4.5 mmol/L (3.5-4.5)
[2024-04-11 10:49] LABS: ALBUMIN 3.7 g/dL (3.2-5.5); BILIRUBIN,TOTAL 0.4 mg/dL (0.2-1.0); CREATININE,URINE 132.3 mg/dL
[2024-04-11 10:59] LABS: PROTEIN/CREATININE RATIO,URINE 4.5 (<=0.2)
--- NOTE | 2024-04-11 13:54 | Ultrasound Report ---
PROCEDURE: Abdomen Limited INDICATIONS: GASTRITIS TECHNIQUE: Real-time focused scanning was performed of the abdomen, with image documentation. COMPARISONS: CT abdomen pelvis 11/18/2019 FINDINGS: Liver: Liver is normal in size and homogeneous in echotexture. Gallbladder: No gallstones, sludge, wall thickening or pericholecystic edema. Biliary ducts: Intrahepatic bile ducts are non-dilated. Extrahepatic bile duct caliber measures 6 m m. Normal is 6-7 mm or less in diameter, or 10 mm or less post-cholecystectomy. Pancreas: Visualized portions of the pancreas are sonographically normal. Right kidney: Normal in size and echotexture. Right kidney measures 10.2 cm long. No hydronephrosis or nephrolithiasis. No solid masses. No complex renal cystic lesions which require follow-up. IVC: Intrahepatic inferior vena cava is patent. Miscellaneous: No free abdominal fluid. IMPRESSION: Unremarkable abdominal ultrasound. Reviewed by: Luz Fong MD on 04/11/2024 1:53 PM PDT Approved by: Luz Fong MD on 04/11/2024 1:53 PM PDT Station ID: [id number]
== END 2024-04-11 07:00 | disposition home or self-care (01) ==
LOC: DI 06:59
PROVIDERS: ATTEND Internal Medicine
DX: K29.70 Gastritis, unspecified, without bleeding (principal); D70.9 Neutropenia, unspecified; D63.1 Anemia in chronic kidney disease; D47.2 Monoclonal gammopathy; R80.9 Proteinuria, unspecified; L93.2 Other local lupus erythematosus; M31.30 Wegener's granulomatosis without renal involvement; I77.6 Arteritis, unspecified; M60.89 Other myositis, multiple sites; N00.9 Acute nephritic syndrome with unspecified morphologic changes
CPT/HCPCS: 36415; 80048; 82040; 82247; 82550; 82570; 82784; 83516; 84075; 84155; 84156; 84165; 84450; 84460; 85025; 86038; 86334

== ENCOUNTER 2024-04-15 16:18 | Outpatient (CLI) | payer MEDICARE, OTHER ==
[2024-04-15 16:52] LABS: CALCIUM 9.4 mg/dL (8.5-10.3); CREATININE 2.6 mg/dL (0.6-1.3); POTASSIUM 4.5 mmol/L (3.5-4.5)
== END 2024-04-15 16:19 | disposition home or self-care (01) ==
LOC: LAB 16:18
PROVIDERS: ATTEND Internal Medicine Nephrology
DX: N05.9 Unspecified nephritic syndrome with unspecified morphologic changes (principal)
CPT/HCPCS: 36415; 80048

== ENCOUNTER 2024-04-15 21:53 | Outpatient (CLI) | payer MEDICARE, OTHER ==
--- NOTE | 2024-04-16 20:14 | Ultrasound Report ---
PROCEDURE: Renal (Retroperitoneal) INDICATIONS: KIDNEY DYSFUNCTION, OBSTRUCTIVE NEPROPATHY TECHNIQUE: Real-time scanning was performed of the retroperitoneal organs, with image documentation. COMPARISON: Ultrasound of abdomen dated 04/11/2024. FINDINGS: Kidneys: Kidneys are normal in size. Right kidney measures 9.96 cm long; left kidney measures 9.4 c m long. Right renal cortical thickness is 1.14 cm; left renal cortical thickness is 1.3 cm. No kayla d masses, hydronephrosis, or nephrolithiasis. Simple cyst in lower pole left kidney is seen measures 1.5 x 1.4 cm in size. Increased bilateral renal parenchymal echotexture is seen. Bladder: Pre-void bladder volume is 117.5 mL. Post-void residual is 18.98 mL. Pre-void images demo nstrate no intraluminal masses or stones. On pre-void images, bilateral ureteral jets are noted with color Doppler interrogation. (Of note, ureteral jets may not be detectable in up to 25% of cases du e to insufficient differences in specific gravity between ureteral and bladder urine). Enlarged pros [place] gland is noted measures 5.3 x 3.1 x 3.3 cm in size. Miscellaneous: No free abdominal fluid. IMPRESSION: 1. Increased bilateral renal parenchymal echotexture concerning for medical renal disease. No obstruc ting stones or hydronephrosis. No solid-appearing renal lesion. Simple cysts in lower pole left kidne y as above. 2. Normal appearing urinary bladder with small amount of postvoid residual. Enlarged prostate gland w ith mass effect on floor of urinary bladder. Reviewed by: Bassam Segura MD on 04/16/2024 8:13 PM PDT Approved by: Bassam Segura MD on 04/16/2024 8:13 PM PDT Station ID: [id number]
== END 2024-04-15 21:54 | disposition home or self-care (01) ==
LOC: DI 21:53
PROVIDERS: ATTEND Internal Medicine Nephrology
DX: N28.1 Cyst of kidney, acquired (principal); N40.0 Benign prostatic hyperplasia without lower urinary tract symptoms; N05.9 Unspecified nephritic syndrome with unspecified morphologic changes
CPT/HCPCS: 36415; 80048

== ENCOUNTER 2024-04-22 10:42 | Outpatient (CLI) | payer MEDICARE, OTHER ==
[2024-04-22 11:08] LABS: CALCIUM 9.2 mg/dL (8.5-10.3); CREATININE 2.8 mg/dL (0.6-1.3)
== END 2024-04-22 10:43 | disposition home or self-care (01) ==
LOC: LAB 10:42
PROVIDERS: ATTEND Internal Medicine Nephrology
DX: N05.9 Unspecified nephritic syndrome with unspecified morphologic changes (principal)
CPT/HCPCS: 36415; 80048

== ENCOUNTER 2024-04-29 12:29 | Outpatient (CLI) | payer MEDICARE, OTHER ==
[2024-04-29 13:23] LABS: CALCIUM 9.5 mg/dL (8.5-10.3); CREATININE 2.8 mg/dL (0.6-1.3); POTASSIUM 4.4 mmol/L (3.5-4.5)
== END 2024-04-29 12:30 | disposition home or self-care (01) ==
LOC: LAB 12:29
PROVIDERS: ATTEND Internal Medicine Nephrology
DX: N05.9 Unspecified nephritic syndrome with unspecified morphologic changes (principal)
CPT/HCPCS: 36415; 80048

== ENCOUNTER 2024-05-06 11:51 | Outpatient (CLI) | payer MEDICARE, OTHER ==
[2024-05-06 13:03] LABS: CALCIUM 9.2 mg/dL (8.5-10.3); CREATININE 2.7 mg/dL (0.6-1.3)
== END 2024-05-06 11:52 | disposition home or self-care (01) ==
LOC: LAB 11:51
PROVIDERS: ATTEND Internal Medicine Nephrology
DX: N05.9 Unspecified nephritic syndrome with unspecified morphologic changes (principal)
CPT/HCPCS: 36415; 80048

== ENCOUNTER 2024-05-21 10:08 | Outpatient (CLI) | payer MEDICARE, OTHER ==
[2024-05-21 10:37] LABS: CALCIUM 9.4 mg/dL (8.5-10.3); CREATININE 2.8 mg/dL (0.6-1.3); POTASSIUM 4.9 mmol/L (3.5-4.5)
== END 2024-05-21 10:09 | disposition home or self-care (01) ==
LOC: LAB 10:08
PROVIDERS: ATTEND Internal Medicine Nephrology
DX: N05.9 Unspecified nephritic syndrome with unspecified morphologic changes (principal)
CPT/HCPCS: 36415; 80048

== ENCOUNTER 2024-06-10 09:57 | Outpatient (CLI) | payer MEDICARE, OTHER ==
[2024-06-10 10:30] LABS: CALCIUM 9.4 mg/dL (8.5-10.3); POTASSIUM 4.9 mmol/L (3.5-4.5)
== END 2024-06-10 09:58 | disposition home or self-care (01) ==
LOC: LAB 09:57
PROVIDERS: ATTEND Internal Medicine Nephrology
DX: N05.9 Unspecified nephritic syndrome with unspecified morphologic changes (principal)
CPT/HCPCS: 36415; 80048

== ENCOUNTER 2024-06-20 11:59 | Outpatient (CLI) | payer MEDICARE, OTHER ==
--- NOTE | 2024-06-20 21:31 | XRAY Report ---
PROCEDURE: Chest 2V INDICATIONS: DYSPNEA TECHNIQUE: 3 views of the chest were acquired. COMPARISON: CXR 03/01/2024. FINDINGS: Surgical changes and devices: None. Lungs and pleura: No pleural effusions or pneumothorax. Lungs are clear. Mediastinum: Mediastinal contours appear normal. Heart size is normal. Bones and chest wall: No suspicious bony lesions. Overlying soft tissues appear unremarkable. IMPRESSION: No acute cardiopulmonary process. Reviewed by: Lance Naylor MD on 06/20/2024 9:30 PM PDT Approved by: Lance Naylor MD on 06/20/2024 9:30 PM PDT Station ID: [id number]
== END 2024-06-20 12:00 | disposition home or self-care (01) ==
LOC: DI 11:59
PROVIDERS: ATTEND Internal Medicine Nephrology
DX: R06.00 Dyspnea, unspecified (principal)